=== PATIENT | male | born 2005 | race Caucasian/White ===

== ENCOUNTER → 2024-04-22 | Outpatient (CLI) | payer BC ==
--- NOTE | 2024-04-22 14:36 | US ---
EXAMINATION TYPE: US groin RT DATE OF EXAM: 04/22/2024 COMPARISON: NONE CLINICAL INDICATION: Male, 18 years old with history of [id number] INGUINAL HERNIA,; Pt states he was doin g squats when he felt a "tear and burning". Now he is having right groin pain TECHNIQUE: Right groin scanned FINDINGS: A lymph node was seen measuring 2.2 x 1.1 x 0.8cm. There is an area that appears to enlarg e with valsalva in patient's area of concern. Additional work up for inguinal hernia recommended IMPRESSION: 1. There may be an inguinal hernia present on the right. Additional workup is recommended. 2. Right inguinal lymph node [facility], , 04/22/2024 2:33 PM
== END | disposition home or self-care (01) ==
LOC: RADUSWWP 13:57
PROVIDERS: ATTEND Family Medicine
DX: K40.90 Unilateral inguinal hernia, without obstruction or gangrene, not specified as recurrent (principal); R59.0 Localized enlarged lymph nodes